=== PATIENT | male | born 1975 | race Caucasian/White ===

== ENCOUNTER 2025-04-21 08:38 | Outpatient (CLI) | payer OTHER, SELFPAY ==
--- NOTE | ~2025-04-21 | US_ITS ---
Limited Abdominal Sonogram: Real-time sonographic imaging of the right upper quadrant was performed. Clinical History: Right upper quadrant pain Findings: The liver appears mildly echogenic, with no evidence of mass lesion or bile duct dilatatio n. Main portal vein demonstrates normal direction of flow. The gallbladder is well distended, and dem onstrate small gallbladder wall polyps. No definite stone or wall thickening. The common bile duct me asures 4 mm. The visualized pancreas, aorta, and IVC are unremarkable. Right kidney unremarkable as imaged. Impression: Small gallbladder wall polyps. Probable fatty infiltration of the liver. Reviewed, dictated and finalized at location M. Impression: Small gallbladder wall polyps. Probable fatty infiltration of the liver.
== END 2025-04-21 08:39 | disposition home or self-care (01) ==
PROVIDERS: PCP Nurse Practitioner Family; Visit Provider Family Medicine
DX: K82.4 Cholesterolosis of gallbladder (principal)
CPT/HCPCS: 76705